=== PATIENT | male | born 1985 | race Hispanic/Latino ===

== ENCOUNTER 2022-03-25 08:56 | Emergency (ER) | payer OTHER ==
--- NOTE | 2022-03-25 10:02 | XRay Report ---
CHEST 2 VIEWS INDICATION / CLINICAL INFORMATION: sob. COMPARISON: None available. FINDINGS: SUPPORT DEVICES: None. HEART / MEDIASTINUM: No significant abnormality. LUNGS / PLEURA: No significant pulmonary or pleural abnormality. No pneumothorax. ADDITIONAL FINDINGS: No significant additional findings. IMPRESSION: 1. No acute findings. Signer Name: Willie Renner Jr, MD Signed: 03/25/2022 9:57 AM Workstation Name: [id number]
[2022-03-25 10:23] LABS: BUN/Creatinine Ratio 10; Blood Urea Nitrogen 10 mg/dL (9-20); Hemolysis Index 6
[2022-03-25 10:33] VITALS: BP 135/65
[2022-03-25 11:26] LABS: Basophils # (Auto) 0.1 K/mm3 (0.0-0.1); Basophils % (Auto) 0.8 % (0.0-1.8); Eosinophils # (Auto) 0.1 K/mm3 (0.0-0.4); Eosinophils % (Auto) 1.2 % (0.0-4.3); Hematocrit 46.2 % (35.5-45.6); Hematocrit 46.4 % (35.5-45.6); Hemoglobin 15.5 gm/dl (11.8-15.2); Hemoglobin 15.6 gm/dl (11.8-15.2); Lymphocytes # (Auto) 2.2 K/mm3 (1.2-5.4); Lymphocytes % (Auto) 21.5 % (13.4-35.0); Mean Corpuscular HGB Conc 33 % (32-34); Mean Corpuscular HGB Conc 34 % (32-34); Mean Corpuscular Volume 93 fl (84-94); Monocytes # (Auto) 0.6 K/mm3 (0.0-0.8); Monocytes % (Auto) 6.3 % (0.0-7.3); Platelet Count 281 K/mm3 (140-440); Platelet Count 282 K/mm3 (140-440); Red Blood Count 4.97 M/mm3 (3.65-5.03); Red Blood Count 5.01 M/mm3 (3.65-5.03); Red Cell Distribution Width 12.9 % (13.2-15.2); Red Cell Distribution Width 13.1 % (13.2-15.2)
[2022-03-25 11:48] LABS: Alanine Aminotransferase 34 units/L (7-56); BUN/Creatinine Ratio 10; Blood Urea Nitrogen 10 mg/dL (9-20); Calcium 9.9 mg/dL (8.4-10.2); Hemolysis Index 2
--- NOTE | 2022-03-25 14:53 | Emergency Department Report ---
ED Chest Pain HPI - General Chief Complaint: Chest Pain Stated Complaint: CHEST PAIN/FEELS LIKE HEART IS HURTING Time Seen by Provider: 03/25/22 14:26 Source: patient Mode of arrival: Ambulatory Limitations: No Limitations - History of Present Illness Initial Comments: 36-year-old male with no significant medical history presents to the emergency department with chest pain. Patient describes his pain this morning while he was at work, describes it in his left chest, sharp felt like his heart was pulsating,\. He denies headache, dizziness or vision changes while this was occurring, states this is new to him and he wanted to make sure he was not reveles ving a heart attack. Patient is a tobacco smoker, he denies any prior medical history, he denies wea kness numbness or tingling of his extremities, no cough cold congestion, no orthopnea, no swelling of his extremities,. No recent travel or sick contacts, no history of DVT PE MD Complaint: chest pain -: Sudden Onset: during exertion Pain Location: left chest Pain Radiation: none Severity: moderate Quality: sharp Consistency: now resolved Improves With: nothing Worsens With: nothing Context: other (At work) re: denies: nausea, vomting, diaphoresis, dyspnea, sense of impending doom Other Symptoms: palpitations. denies: cough, fever, syncope, rash, acid taste in mouth, leg swelling, burping - Related Data Previous Rx's Medication Instructions Recorded Last Taken Type Naproxen [Naprosyn] 375 mg PO BID PRN #20 tablet 03/25/22 Unknown Rx methOCARBAMOL [Robaxin TAB] 500 mg PO Q6H PRN #20 03/25/22 Unknown Rx Allergies Allergy/AdvReac Type Severity Reaction Status Date / Time No Known Allergies Allergy Unverified 03/25/22 10:24 Heart Score - HEART Score History: Slightly suspicious EKG: Normal Age: < 45 Risk factors: 1-2 risk factors Troponin: < normal limit HEART Score: 1 - EKG Read Time Time EKG Completed: 10:40 EKG Read Time: 10:45 - Critical Actions Critical Actions: 0-3 pts:0.9-1.7%risk of adverse cardiac event.Candidate for discharge ED Review of Systems ROS: Stated complaint: CHEST PAIN/FEELS LIKE HEART IS HURTING Other details as noted in HPI Constitutional: no symptoms reported. denies: chills ENT: as per HPI Respiratory: see HPI Cardiovascular: chest pain, palpitations. denies: dyspnea on exertion, edema Endocrine: denies: intolerance to cold, intolerance to heat Gastrointestinal: denies: abdominal pain, nausea, vomiting Genitourinary: denies: urgency, dysuria Musculoskeletal: as per HPI. denies: back pain, myalgia Skin: as per HPI. denies: rash Neurological: denies: headache, weakness, numbness, paresthesias Psychiatric: denies: anxiety, depression Hematological/Lymphatic: denies: easy bleeding ED Past Medical Hx - Past Medical History Previous Medical History?: No - Surgical History Past Surgical History?: No - Social History Smoking Status: Never Smoker - Medications Home Medications: Home Medications Medication Instructions Recorded Confirmed Last Taken Type Naproxen [Naprosyn] 375 mg PO BID PRN #20 tablet 03/25/22 Unknown Rx methOCARBAMOL [Robaxin TAB] 500 mg PO Q6H PRN #20 03/25/22 Unknown Rx ED Physical Exam - General Limitations: No Limitations - ENT ENT exam: Present: normal exam, normal orophraynx - Neck Neck exam: Present: normal inspection - Respiratory Respiratory exam: Present: normal lung sounds bilaterally, chest wall tenderness. Absent: respiratory distress - Cardiovascular Cardiovascular Exam: Present: regular rate, normal rhythm - GI/Abdominal GI/Abdominal exam: Present: soft. Absent: distended - Extremities Exam Extremities exam: Present: normal inspection, full ROM - Back Exam Back exam: Present: normal inspection, full ROM - Neurological Exam Neurological exam: Present: alert, oriented X3, CN II-XII intact, normal gait - Psychiatric Psychiatric exam: Present: normal affect, normal mood - Skin Skin exam: Present: warm, dry, intact, normal color ED Course Vital Signs 03/25/22 10:31 Temperature 98.5 F Pulse Rate 85 Respiratory 18 Rate Blood Pressure 135/65 O2 Sat by Pulse 99 Oximetry ED Medical Decision Making - Lab Data Result diagrams: 03/25/22 10:39 03/25/22 10:39 - EKG Data -: EKG Interpreted by Me Rate: normal - EKG Data When compared to previous EKG there are: previous EKG unavailable Interpretation: normal EKG 03/25/22 15:54 Normal sinus bradycardia at 53, no acute STEMI, MT interval 114, QRS of 94, QT/QTc 456/429. - Medical Decision Making 36-year-old male with no significant medical history presents to the emergency department with chest pain. Patient describes his pain this morning while he was at work, describes it in his left chest, sharp felt like his heart was pulsating,\. He denies headache, dizziness or vision changes while this was occurring, states this is new to him and he wanted to make sure he was not having a heart attack. Patient is a tobacco smoker, he denies any prior medical history, he denies weakness numbness or tingling of his extremities, no cough cold congestion, no orthopnea, no swelling of his extremities,. No recent travel or sick contacts, no history of DVT PE Serial troponins negative, negative for effusions cardiomegaly, heart score of 1, Vital signs are stable, patient is stable to follow-up outpatient for further evaluation. Associated courage patient smoking cessation discussed Patient remained stable nontoxic-appearing, afebrile, ambulating steadily without assistance. Gone over ED findings with patient as well as plan for follow-up. Also discussed return precautions with patient, all questions and concerns addressed. Patient is stable to be discharged follow-up outpatient. Audio voice dictation device used, hence the chart might contain some dictation errors, mispronunciations, wrong spelling and wrong verbiage. Critical care attestation.: If time is entered above; I have spent that time in minutes in the direct care of this critically ill patient, excluding procedure time. ED Disposition Clinical Impression: Atypical chest pain Disposition: 01 HOME / SELF CARE / HOMELESS Is pt being admited?: No Does the pt Need Aspirin: No Condition: Stable Instructions: Nonspecific Chest Pain, Adult Prescriptions: Naproxen [Naprosyn] 375 mg PO BID PRN #20 tablet PRN Reason: Pain , Severe (7-10) methOCARBAMOL [Robaxin TAB] 500 mg PO Q6H PRN #20 PRN Reason: Muscle Spasm Referrals: AZAM CASAREZ MD [Primary Care Provider] - 3-5 Days SEBASTIEN CONTE MD [Staff Physician] - 3-5 Days Forms: Work/School Release Form(ED)
--- NOTE | 2022-03-27 13:24 | Electrocardiograph Report ---
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
== END 2022-03-25 16:00 | disposition home or self-care (01) ==
LOC: ED 08:56
DX: R07.9 Chest pain, unspecified (principal); R00.2 Palpitations
CPT/HCPCS: 36415; 71046; 80048; 80053; 84484; 85025; 85027; 93005; 99283